=== PATIENT | female | born 1975 | race Caucasian/White ===

== ENCOUNTER 2017-07-02 16:38 | Emergency (ER) | payer MEDICARE ==
[2017-07-02] MEDS ORDERED: PROVENTIL 2.5 MG/3 ML NEB IH ONE ×4 (17:08→17:54)
[2017-07-02] MEDS ORDERED: DELTASONE 20 MG PO ONE (17:09)
[2017-07-02] MEDS ORDERED: Vibramycin 100 MG PO ONE (17:09)
[2017-07-02 17:12] VITALS: BP 131/93
--- NOTE | 2017-07-02 17:18 | ERPHSYRPT ---
- History of Present Illness Time Seen by Provider: 07/02/17 17:03 Source: patient Patient Subjective Stated Complaint: pt here for cough,congestion, no fever Triage Nursing Assessment: pt alert, cough productive green. wheezes Physician History: CC: cough HX: 42 y/o non smoker with cough for 2 weeks, congestion, worse. Alb MDI is . She has green sputum. Lots of cough. Low grade fevers. Timing/Duration: week(s) (2) Allergies/Adverse Reactions: codeine Allergy (Verified 07/02/17 17:13) Tightness of Throat Hx Tetanus, Diphtheria Vaccination/Date Given: No Hx Influenza Vaccination/Date Given: No Hx Pneumococcal Vaccination/Date Given: No Immunizations Up to Date: Yes - Review of Systems Constitutional: Malaise Eyes: No Symptoms Respiratory: Cough, Wheezing Abdominal/Gastrointestinal: No Nausea, No Vomiting, No Diarrhea Skin: No Rash Neurological: No Headache All Other Systems: Reviewed and Negative - Past Medical History Pertinent Past Medical History: Yes Neurological History: Migraines ENT History: No Pertinent History Cardiac History: No Pertinent History Respiratory History: Bronchitis Endocrine Medical History: No Pertinent History Musculoskeletal History: Arthritis, Other GI Medical History: No Pertinent History, GERD, Gallbladder Disease, Polyps History: No Pertinent History Psycho-Social History: Bipolar Female Reproductive Disorders: No Pertinent History Other Medical History: rt shoulder and neck pain,PTSD,. Chronic pain - Past Surgical History Past Surgical History: Yes Neuro Surgical History: No Pertinent History Cardiac: No Pertinent History Respiratory: No Pertinent History Gastrointestinal: Cholecystectomy Genitourinary: No Pertinent History Female Surgical History: Tubal Ligation Other Surgical History: THERMAL ABLATION. cyst on right ovary removed. Cervical RONDA - Social History Smoking Status: Current every day smoker How long have you smoked: 22 years Exposure to second hand smoke: Yes Drug Use: none Patient Lives Alone: No - Female History Hx Last Menstrual Period: ablasion Hx Now: No - Nursing Vital Signs Nursing Vital Signs: Initial Vital Signs Temperature 98.3 F 07/02/17 17:06 Pulse Rate 86 07/02/17 17:06 Respiratory Rate 18 07/02/17 17:06 Blood Pressure 131/93 07/02/17 17:06 O2 Sat by Pulse Oximetry 96 07/02/17 17:06 Pain Scale Pain Intensity 8 - Physical Exam General Appearance: alert Eye Exam: PERRL/EOMI Ears, Nose, Throat Exam: normal ENT inspection, moist mucous membranes, pharyngeal erythema Neck Exam: normal inspection, non-tender, supple Respiratory Exam: rhonchi, wheezing, other (lots of cough) Cardiovascular Exam: regular rate/rhythm Gastrointestinal/Abdomen Exam: soft, No tenderness, No distention Back Exam: normal inspection Extremity Exam: normal inspection, normal range of motion Neurologic Exam: alert, oriented x 3, cooperative, panel sewer II-XII nml as tested, sensation nml, No motor deficits SpO2 Interpretation: normal SpO2: 96 Oxygen Delivery: Room Air - Course Nursing assessment & vital signs reviewed: Yes - Radiology Exams cxr X-ray Interpretation: Interpreted by me, No Pneumonia Ordered Tests: Active Orders 24 hr Category Date Time Status CHEST 2 VIEWS (PA AND LAT) Stat Exams 07/02/17 17:09 Taken Peak Expiratory Flow Rate ONCE RT 07/02/17 17:35 Completed Respiratory Nebulizer STAT RT 07/02/17 17:09 Completed Medication Summary Discontinued Medications Generic Name Dose Route Start Last Admin Trade Name Freq PRN Reason Stop Dose Admin Albuterol Sulfate 2.5 mg 07/02/17 17:08 07/02/17 17:15 Proventil 2.5 Mg/3 Ml Neb IH 07/02/17 17:09 2.5 mg STAT ONE Administration Albuterol Sulfate Confirm 07/02/17 17:14 Proventil 2.5 Mg/3 Ml Neb Administered 07/02/17 17:15 Dose 2.5 mg IH .STK-MED ONE Doxycycline Hyclate 100 mg 07/02/17 17:09 07/02/17 17:22 Vibramycin 100 Mg PO 07/02/17 17:10 100 mg STAT ONE Administration Doxycycline Hyclate Confirm 07/02/17 17:21 Vibramycin 100 Mg Administered 07/02/17 17:22 Dose 100 mg .ROUTE .STK-MED ONE Prednisone 60 mg 07/02/17 17:09 07/02/17 17:22 Deltasone 20 Mg PO 07/02/17 17:10 60 mg STAT ONE Administration Prednisone Confirm 07/02/17 17:21 Deltasone 20 Mg Administered 07/02/17 17:22 Dose 60 mg .ROUTE .STK-MED ONE - Progress Progress Note: 07/02/17 17:16 Advised smoking cessation. 07/02/17 17:50 No pneumonia on cxr. Will release with instr. Counseled pt/family regarding: diagnosis, need for follow-up, rad results, smoking cessation - Departure Time of Disposition: 17:51 Departure Disposition: Home Clinical Impression: Acute asthmatic bronchitis, Smoker Condition: Fair Critical Care Time: No Referrals: CASSIDY CHAUDHRY [Primary Care Provider] - Instructions: Asthma, Adult (DC), Cough, Adult (DC), Quitting Smoking Additional Instructions: UPPER RESPIRATORY INFECTIONS 1. The signs and symptoms of a cold may last up to 10 days. These illnesses are due to viruses which are not treatable with antibiotics. 2. The following suggestions can aid in recovery and to minimize symptoms: A. Increase fluid intake. B. Acetaminophen or Ibuprofen as directed. C. Avoid smoking environments as this will increase the risk of developing pneumonia. D. For children, may use a cool mist vaporizer in the child's room. 3. Contact your Family Physician if you note: A. Persisten fever >103 for more than 3 days B. Breathing difficulty C. Productive cough of yellow/green sputum D. Illness greater than 7 days E. Persistent vomiting F. Stiff neck Rx albuterol MDI. Rx prednisone. Rx doxycycline. Prescriptions: Albuterol Sulfate [Albuterol Sulfate Hfa] 2 puff IH Q4-6HPRN PRN #1 [id number] PRN Reason: cough or wheeze Doxycycline Hyclate 100 mg [Vibramycin 100 MG] 1 tab PO BID #20 tab Prednisone 20 mg [Deltasone 20 mg] 2 tab PO DAILY #10 tablet
[2017-07-02] MEDS ORDERED: Vibramycin 100 MG ONE (17:21)
[2017-07-02] MEDS ORDERED: DELTASONE 20 MG ONE (17:21)
[2017-07-02 17:51] VITALS: O2SAT 96
[2017-07-02 18:08] VITALS: PULSE 88
--- NOTE | 2017-07-02 20:56 | XRAY ---
Indication: Productive cough. Comparison: None PA/lateral chest demonstrates normal heart and lungs. Bony thorax intact.
== END 2017-07-02 18:08 | disposition home or self-care (01) ==
LOC: ED 16:38
DX: J45.909 Unspecified asthma, uncomplicated (principal); F17.200 Nicotine dependence, unspecified, uncomplicated
CPT/HCPCS: 71046; 94150; 94640; 99282; 99284; A9270-GY

== ENCOUNTER 2019-04-18 06:16 | Emergency (ER) | payer MEDICARE ==
[2019-04-18 06:40] VITALS: BP 123/81; PULSE 79; O2SAT 98
--- NOTE | 2019-04-18 06:49 | ERPHSYRPT ---
- History of Present Illness Time Seen by Provider: 04/18/19 06:35 Source: patient Exam Limitations: no limitations Patient Subjective Stated Complaint: pt states she has red rash that itches all over her arms, legs, back, abd Triage Nursing Assessment: pt alert and oriented, answers questions approp. pt ambulatory with steady gait noted. respirations nonlabored with lungs cta. red raised rash to arms, legs, and trunk. Physician History: 43 y/o white female presents one year intermittent generalized rash. flare up 2 weeks ago. itches. had used topical steroids in past. pt has an appt with a digital assistant on 05/02/19. no known exposures. Timing/Duration: intermittent (over a year), worse Quality: itchy Severity: moderate Location: generalized Possible Causes: no cause identified Associated Symptoms: hives, No difficulty breathing Allergies/Adverse Reactions: codeine Allergy (Verified 04/18/19 06:40) Tightness of Throat Home Medications: PANTOPRAZOLE 40 mg Tablet [Protonix 40MG Tablet] 40 mg PO QAM 04/18/19 [ History] Hx Tetanus, Diphtheria Vaccination/Date Given: Yes Hx Influenza Vaccination/Date Given: Yes Hx Pneumococcal Vaccination/Date Given: No Immunizations Up to Date: Yes - Review of Systems Constitutional: No Symptoms Eyes: No Symptoms Ears, Nose, & Throat: No Symptoms Respiratory: No Symptoms Cardiac: No Symptoms Abdominal/Gastrointestinal: No Symptoms Genitourinary Symptoms: No Symptoms Musculoskeletal: No Symptoms Skin: Rash Neurological: No Symptoms Psychological: No Symptoms Endocrine: No Symptoms Hematologic/Lymphatic: No Symptoms Immunological/Allergic: No Symptoms All Other Systems: Reviewed and Negative - Past Medical History Pertinent Past Medical History: Yes Neurological History: Migraines ENT History: No Pertinent History Cardiac History: No Pertinent History Respiratory History: Bronchitis Endocrine Medical History: No Pertinent History Musculoskeletal History: Arthritis, Other GI Medical History: No Pertinent History, GERD, Gallbladder Disease, Polyps History: No Pertinent History Psycho-Social History: Bipolar Female Reproductive Disorders: No Pertinent History Other Medical History: rt shoulder and neck pain,PTSD,. Chronic pain - Past Surgical History Past Surgical History: Yes Neuro Surgical History: No Pertinent History Cardiac: No Pertinent History Respiratory: No Pertinent History Gastrointestinal: Cholecystectomy Genitourinary: No Pertinent History Female Surgical History: Tubal Ligation Other Surgical History: THERMAL ABLATION. cyst on right ovary removed. Cervical RONDA - Social History Smoking Status: Current every day smoker How long have you smoked: 23 years Exposure to second hand smoke: Yes Drug Use: none Patient Lives Alone: No - Female History Hx Last Menstrual Period: thermal ablation Hx Now: No - Nursing Vital Signs Nursing Vital Signs: Initial Vital Signs Temperature 98.2 F 04/18/19 06:28 Pulse Rate 79 04/18/19 06:28 Respiratory Rate 18 04/18/19 06:28 Blood Pressure 123/81 04/18/19 06:28 O2 Sat by Pulse Oximetry 98 04/18/19 06:28 Pain Scale Pain Intensity 0 - Physical Exam General Appearance: no apparent distress, alert, anxiety Eye Exam: PERRL/EOMI, eyes nml inspection Ears, Nose, Throat Exam: normal ENT inspection Neck Exam: normal inspection, non-tender, supple, full range of motion Respiratory Exam: normal breath sounds, lungs clear, airway intact, No chest tenderness, No respiratory distress Gastrointestinal/Abdomen Exam: No tenderness Pelvic Exam: not done Rectal Exam: not done Back Exam: normal inspection, normal range of motion, CVA tenderness Extremity Exam: normal inspection, normal range of motion, pelvis stable Neurologic Exam: alert, oriented x 3, cooperative, cook boat II-XII nml as tested Skin Exam: rash (generalized multiple sl red raised skin lesions. no blisters all approx same sx) Lymphatic Exam: No adenopathy SpO2 Interpretation: normal SpO2: 98 O2 Delivery: Room Air - Progress Progress: unchanged Counseled pt/family regarding: diagnosis, need for follow-up - Departure Departure Disposition: Home Clinical Impression: Rash and nonspecific skin eruption Condition: Stable Critical Care Time: No Referrals: CASSIDY CHAUDHRY [Primary Care Provider] - Additional Instructions: keep skin moist with unscented lotion two times daily. keep your dermatology appointment. Prescriptions: Famotidine [Pepcid] 20 mg PO DAILY #10 tablet Hydroxyzine Pamoate [Vistaril] 25 mg PO Q6H #20 capsule Methylprednisolone Packet [Medrol Dosepack] 4 mg PO UD #1 packet
[2019-04-18] MEDS ORDERED: ATARAX 25 MG PO ONE (06:55)
[2019-04-18] MEDS ORDERED: Pepcid 20 MG PO ONE (06:55)
[2019-04-18] MEDS ORDERED: solu-MEDROL 125 MG IM ONE (06:55)
[2019-04-18] MEDS ORDERED: Pepcid 20 MG ONE (07:00)
[2019-04-18] MEDS ORDERED: solu-MEDROL 125 MG ONE (07:01)
[2019-04-18] MEDS ORDERED: ATARAX 25 MG ONE (07:01)
== END 2019-04-18 07:24 | disposition home or self-care (01) ==
LOC: ED 06:16
DX: R21 Rash and other nonspecific skin eruption (principal)
CPT/HCPCS: 96372; 99283; J2930; A9270-GY

== ENCOUNTER 2019-05-13 14:37 | Emergency (ER) | payer MEDICARE ==
[2019-05-13 14:58] VITALS: O2SAT 97
--- NOTE | 2019-05-13 15:23 | ERPHSYRPT ---
- History of Present Illness Time Seen by Provider: 05/13/19 15:20 Source: patient Exam Limitations: no limitations Patient Subjective Stated Complaint: Pt fell [place] down the last step on a porch and her ankle ended up under her but she isn't sure if she twisted it or what, left ankle bruised and swollen on lateral and medial sides Triage Nursing Assessment: Pt brought into the ER via a wheelchair, vitals wnl, capillary refill normal, pulses normal, denies pain while not putting weight on it Physician History: Pt fell [place] down the last step on a porch and her ankle ended up under her but she isn't sure if she twisted it or what, left ankle bruised and swollen on lateral and medial sides Method of Injury: fell Occurred: last week Quality: intermittent Severity of Pain-Max: mild Severity of Pain-Current: mild Lower Extremities Pain: ankle: left Modifying Factors: Improves With: cold therapy Associated Symptoms: none Allergies/Adverse Reactions: codeine Allergy (Verified 05/13/19 14:58) Tightness of Throat Home Medications: PANTOPRAZOLE 40 mg Tablet [Protonix 40MG Tablet] 40 mg PO QAM 04/18/19 [ History] Cetirizine HCl [Allergy Relief] 10 mg PO DAILY 05/13/19 [History] Crisaborole [Eucrisa] 60 gm TP UD 05/13/19 [History] Famotidine [Pepcid] 40 mg PO DAILY 05/13/19 [History] Hx Tetanus, Diphtheria Vaccination/Date Given: Yes Hx Influenza Vaccination/Date Given: Yes Hx Pneumococcal Vaccination/Date Given: No - Review of Systems Constitutional: No Symptoms Eyes: No Symptoms Ears, Nose, & Throat: No Symptoms Respiratory: No Symptoms Cardiac: No Symptoms Abdominal/Gastrointestinal: No Symptoms Musculoskeletal: Joint Pain, Joint Swelling (left ankle) - Past Medical History Pertinent Past Medical History: Yes Neurological History: Migraines ENT History: No Pertinent History Cardiac History: No Pertinent History Respiratory History: Bronchitis Endocrine Medical History: No Pertinent History Musculoskeletal History: Arthritis, Other GI Medical History: No Pertinent History, GERD, Gallbladder Disease, Polyps History: No Pertinent History Psycho-Social History: Bipolar Female Reproductive Disorders: No Pertinent History Other Medical History: rt shoulder and neck pain,PTSD,. Chronic pain, excema - Past Surgical History Past Surgical History: Yes Neuro Surgical History: No Pertinent History Cardiac: No Pertinent History Respiratory: No Pertinent History Gastrointestinal: Cholecystectomy Genitourinary: No Pertinent History Female Surgical History: Tubal Ligation Other Surgical History: THERMAL ABLATION. cyst on right ovary removed. Cervical RONDA - Social History Smoking Status: Current every day smoker How long have you smoked: 23 years Exposure to second hand smoke: Yes Drug Use: none Patient Lives Alone: No - Female History Hx Now: No (tubal, thermal ablasion) - Nursing Vital Signs Nursing Vital Signs: Initial Vital Signs Temperature 97.9 F 05/13/19 14:47 Pulse Rate 73 05/13/19 14:47 Blood Pressure 107/73 05/13/19 14:47 O2 Sat by Pulse Oximetry 97 05/13/19 14:47 Pain Scale Pain Intensity 0 - Physical Exam General Appearance: no apparent distress Eyes, Ears, Nose, Throat Exam: normal ENT inspection Neck Exam: normal inspection Ankle Exam: left ankle: pain, soft tissue tenderness SpO2: 97 - Course Nursing assessment & vital signs reviewed: Yes - Radiology Exams Left Ankle X-ray Interpretation: Reviewed by me, Negative, No Fracture, No Subluxation Ordered Tests: Active Orders 24 hr Category Date Time Status ANKLE (3 VIEWS) Stat Exams 05/13/19 14:59 Taken - Progress Progress: unchanged, pain not gone completely Counseled pt/family regarding: diagnosis, need for follow-up, rad results - Departure Departure Disposition: Home Clinical Impression: High ankle sprain of left lower extremity Qualifiers: Encounter type: initial encounter Qualified Code(s): S93.432A - Sprain of tibiofibular ligament of left ankle, initial encounter Condition: Stable Critical Care Time: No Referrals: CASSIDY CHAUDHRY [Primary Care Provider] - Instructions: Ankle Sprain (DC) Additional Instructions: take 500 mg tylenol with 400 mg ibuprofen three times a day for 3 days. CLOTILDE HODGE was seen on 05/13/19 n the Emergency Room. At that time you were treated for an emergent condition, during your visit Laboratory, Radiology and/or other procedures may have been ordered. It is very important that you follow-up with your Primary Care Physician CASSIDY CHAUDHRY within the next 24-48 hours to review your Emergency Room visit and the final results of testing that was ordered. Some test results such as Urine Cultures, Blood Cultures, and other cultures if ordered will not be finalized for 24-48 hours. If you do not have a Primary Care Provider please call the medical records department at [phone] to obtain a copy of your results or you may sign into our patient portal to obtain these results by visiting us @ [email or web address] and completing the following steps: 1. Click on the Patient Portal link 2. Click the Patient Self Enrollment Link to complete the enrollment form and entering your 3. Once the enrollment form is completed you will receive an email with a temporary ID and password at the email address you provided. 4. Next choose a user name and password. Your user name must be at least 4 characters long and your password must be at least 4 characters long. 5. Choose a security question from the list and provide your answer to the question. If you already have signed into the Health Portal you may access your Health Care Information 06/12 by the following steps: 1. Login to our website @ [email or web address] 2. Enter your original user name and password. FAQS The [facility] Health Portal is an online tool that contains your Lab Results, Radiology Reports, Visit History, Discharge Instructions and Health Summary Lab and Radiology Results will not be available for 72 hours on the portal. The Portal is a secure site, passwords are encryted and URLs are re-written so they cannot be copied and pasted. You and authorized family members are the only ones who can access your Portal. Also there is a timeout feature that protects your information if you leave the Portal page open. If you have technical difficulty please use the Contact Us link on the page this will allow you to submit any questions you have regarding the Portal or you may contact the Medical Record Department at [phone]. Discharge/Care Plan CLOTILDE HODGE was seen on 05/13/19 in the Emergency Room. The patient was counseled regarding Diagnosis,Lab results, Imaging studies, need for follow up and when to return to the Emergency Room. Prescriptions given: Discharge Note I have spoken with the patient and/or caregivers. I have explained the patient' s condition, diagnosis and treatment plan based on the information available to me at this time. I have answered the patient's and/or caregiver's questions and addressed any concerns. The patient and/or caregivers have as good understanding of the patient's diagnosis, condition and treatment plan as can be expected at this point. The vital signs have been stable. The patient's condition is stable and appropriate for discharge from the emergency department. The patient will pursue further outpatient evaluation with the primary care physician or other designated or consulting physician as outlined in the discharge instructions. The patient and/or caregivers are agreeable to this plan of care and follow-up instructions have been explained in detail. The patient and/or caregivers have received these instruction. The patient/and or caregivers are aware that any significant change in condition or worsening of symptoms should prompt an immediate return to this or the closest emergency department or call 911.
[2019-05-13 15:25] VITALS: BP 108/76; PULSE 68
--- NOTE | 2019-05-13 20:22 | XRAY ---
Indication: Pain following twisting injury. Comparison: None 3 views of the left ankle demonstrates small plantar heel spur and tiny distal tibia bone island. No other bony, articular, or soft tissue abnormalities.
== END 2019-05-13 15:30 | disposition home or self-care (01) ==
LOC: ED 14:37
DX: S93.432A Sprain of tibiofibular ligament of left ankle, initial encounter (principal)
CPT/HCPCS: 73610; 99283

== ENCOUNTER 2019-12-12 16:44 | Emergency (ER) | payer MEDICARE ==
[2019-12-12 16:55] VITALS: PULSE 72
[2019-12-12] MEDS ORDERED: Rocephin 1000 MG INJ IM ONE (17:02)
[2019-12-12] MEDS ORDERED: HYDROCODONE-ACETAMIN 2.5-108/5 ML SOLUTION PO STA (17:03)
[2019-12-12] MEDS ORDERED: solu-MEDROL 125 MG IM ONE (17:03)
[2019-12-12] MEDS ORDERED: Rocephin 1000 MG INJ ONE (17:09)
[2019-12-12] MEDS ORDERED: HYDROCODONE-ACETAMIN 2.5-108/5 ML SOLUTION ONE (17:09)
[2019-12-12] MEDS ORDERED: XYLOCAINE 1% HCL 20 ML MDV ONE (17:09)
[2019-12-12] MEDS ORDERED: solu-MEDROL 125 MG ONE (17:09)
--- NOTE | 2019-12-12 17:10 | ERPHSYRPT ---
- History of Present Illness Time Seen by Provider: 12/12/19 16:55 Source: patient, family Exam Limitations: no limitations Patient Subjective Stated Complaint: Pt has a large white puscule in the back right of her throat causing pain to her throat, mouth and teeth Triage Nursing Assessment: Pt brought to the ER by her , john freeman, rates mouth/throat pain as 8/10, large white puscule in the back right of her throat, afebrile, denies any other issues at this time Physician History: This is a 44-year-old white female who presents with 1 day history of sore throat right side versus the left. There is a pustule present in the oropharynx. Patient has not taken her temperature but has felt feverish. She is afebrile this evening. She has no cough. She has no chest pain she has no shortness of breath. She has no abdominal pain. She has no myalgias or arthralgias. She has not been exposed to anybody with the COVID-19 virus or anyone with a positive strep throat diagnosis. Timing/Duration: yesterday Cough Quality/Degree: no cough Possible Cause: no prior episodes Modifying Factors: Improves With: other (Hurts to swallow to have minimal pain) Associated Symptoms: sore throat (Right side worse than left) Allergies/Adverse Reactions: codeine Allergy (Verified 12/12/19 16:55) Tightness of Throat Home Medications: PANTOPRAZOLE 40 mg Tablet [Protonix 40MG Tablet] 40 mg PO QAM 04/18/19 [History] Cetirizine HCl [Allergy Relief] 10 mg PO DAILY 05/13/19 [History] Crisaborole [Eucrisa] 60 gm TP UD 05/13/19 [History] Famotidine [Pepcid] 40 mg PO DAILY 05/13/19 [History] Hx Tetanus, Diphtheria Vaccination/Date Given: Yes Hx Influenza Vaccination/Date Given: Yes Hx Pneumococcal Vaccination/Date Given: No Travel Risk - International Travel Have you traveled outside of the country in past 3 weeks: No - Coronavirus Screening Are you exhibiting any of the following symptoms?: No Close contact with a COVID-19 positive Pt in past 14-21 Days: No - Review of Systems Constitutional: No Symptoms Eyes: No Symptoms Ears, Nose, & Throat: Throat Pain (With swallowing), No Stridor Respiratory: No Symptoms Cardiac: No Symptoms Abdominal/Gastrointestinal: No Symptoms Genitourinary Symptoms: No Symptoms Musculoskeletal: No Symptoms Skin: No Symptoms Neurological: No Symptoms Psychological: No Symptoms Endocrine: No Symptoms Hematologic/Lymphatic: No Symptoms Immunological/Allergic: No Symptoms All Other Systems: Reviewed and Negative - Past Medical History Pertinent Past Medical History: Yes Neurological History: Migraines ENT History: No Pertinent History Cardiac History: No Pertinent History Respiratory History: Bronchitis Endocrine Medical History: No Pertinent History Musculoskeletal History: Arthritis, Other GI Medical History: No Pertinent History, GERD, Gallbladder Disease, Polyps History: No Pertinent History Psycho-Social History: Bipolar Female Reproductive Disorders: No Pertinent History Other Medical History: rt shoulder and neck pain,PTSD,. Chronic pain, excema - Past Surgical History Past Surgical History: Yes Neuro Surgical History: No Pertinent History Cardiac: No Pertinent History Respiratory: No Pertinent History Gastrointestinal: Cholecystectomy Genitourinary: No Pertinent History Female Surgical History: Tubal Ligation Other Surgical History: THERMAL ABLATION. cyst on right ovary removed. Cervical RONDA - Social History Smoking Status: Current every day smoker How long have you smoked: 23 years Exposure to second hand smoke: Yes Drug Use: none Patient Lives Alone: No - Female History Hx Now: No (tubal) - Nursing Vital Signs Nursing Vital Signs: Initial Vital Signs Temperature 98.0 F 12/12/19 16:47 Pulse Rate 72 12/12/19 16:47 Blood Pressure 124/86 12/12/19 16:47 O2 Sat by Pulse Oximetry 98 12/12/19 16:47 Pain Scale Pain Intensity 8 - Physical Exam General Appearance: no apparent distress, alert, anxiety Eye Exam: PERRL/EOMI, eyes nml inspection Ears, Nose, Throat Exam: pharyngeal erythema, other (Exudate present right side of oropharynx) Neck Exam: normal inspection, non-tender, supple, full range of motion Respiratory Exam: normal breath sounds, lungs clear, airway intact, No chest tenderness, No respiratory distress Cardiovascular Exam: regular rate/rhythm, normal heart sounds, normal peripheral pulses Gastrointestinal/Abdomen Exam: soft, normal bowel sounds, No tenderness Pelvic Exam: not done Rectal Exam: not done Back Exam: normal inspection, normal range of motion, No CVA tenderness, No vertebral tenderness Extremity Exam: normal inspection, normal range of motion, pelvis stable Neurologic Exam: alert, oriented x 3, cooperative, 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 tested, normal mood/affect, nml cerebellar function, nml station & gait, No sensation nml Skin Exam: normal color, warm, dry Lymphatic Exam: No adenopathy SpO2 Interpretation: normal SpO2: 98 O2 Delivery: Room Air - Course Nursing assessment & vital signs reviewed: Yes Ordered Tests: Medication Summary Generic Name Dose Route Start Last Admin Trade Name Patrice PRN Reason Stop Dose Admin Hydrocodone Bitart/Acetaminophen 15 ml 12/12/19 17:03 Hydrocodone-Acetamin 2.5-108/5 Ml Solution PO 12/12/19 17:04 STAT STA Ceftriaxone Sodium 1,000 mg 12/12/19 17:02 Rocephin 1000 Mg Inj IM 12/12/19 17:03 STAT ONE Methylprednisolone Sodium Succinate 125 mg 12/12/19 17:03 Solu-Medrol 125 Mg IM 12/12/19 17:04 STAT ONE - Progress Progress: improved Air Movement: good Progress Note: 12/12/19 17:12 Patient told me that she cannot take codeine but has taken hydrocodone without any difficulty or problems in the past. Blood Culture(s) Obtained: No Antibiotics given: No Counseled pt/family regarding: diagnosis, need for follow-up - Departure Departure Disposition: Home Clinical Impression: Pharyngitis Condition: Stable Critical Care Time: No Referrals: CASSIDY CHAUDHRY [Primary Care Provider] - Additional Instructions: Drink plenty of fluids. Take medication as prescribed. Follow-up with your primary care physician for persistent symptoms. Return to emergency department if your symptoms worsen. Prescriptions: Prednisone 10 mg [Deltasone 10 mg] 10 mg PO TID #12 tablet Hydrocodone Bit/Acetaminophen [Hydrocodone-Acetaminophen Soln] 10 ml PO Q6H #120 ml Azithromycin 250 mg [Zithromax 250 MG TABLET] 250 mg PO ZPACK #6 tablet
[2019-12-12 17:19] VITALS: BP 115/94; O2SAT 95
== END 2019-12-12 17:29 | disposition home or self-care (01) ==
LOC: ED 16:44
DX: J02.9 Acute pharyngitis, unspecified (principal)
CPT/HCPCS: 96372; 99284; J0696; J2930; A9270-GY

== ENCOUNTER 2020-01-01 14:46 | Emergency (ER) | payer MEDICARE ==
--- NOTE | 2020-01-01 15:36 | ERPHSYRPT ---
- History of Present Illness Time Seen by Provider: 01/01/20 14:55 Source: patient Exam Limitations: no limitations Patient Subjective Stated Complaint: Pt states "I was here on the of last month for the same thing and now it is back. My right ear has pressure and I have a white spot on the right side of my throat." Triage Nursing Assessment: Pt presented alert and orietned X 3, skin pwd Pt ambualtes with an upright steady gait, able to speak in clear full sentnecs pt in no apparent respiratory distress. pt has white spot on her throat. Physician History: Patient is a 44-year-old female presents to our ED with complaints of right ear pressure and sore throat. Patient was in our ED on 11 December for the same. She was diagnosed with strep throat. Patient was treated with antibiotics and steroids. Symptoms resolved however sore throat and ear pressure have recurred. Symptoms started yesterday. Sore throat is primarily on the right side. Patient observed a white spot on her tonsil. No fever. No nausea vomiting. No headache. No neck pain. No meningeal signs. No nausea or vomiting. No rash. No diarrhea. Symptoms are mild to moderate in intensity. Patient voices no other complaints at this time. Severity: moderate ENT Location: ear (R), throat Prearrival Treatment: no prearrival treatment Modifying Factors: Improves With: nothing Associated Symptoms: ear pain (R), No fever, No change in hearing, No headache, No hearing loss, No jaw pain, No malaise, No nasal congestion/drainage, No nasal foreign body, No neck pain, No poor fluid intake Allergies/Adverse Reactions: codeine Allergy (Verified 12/12/19 16:55) Tightness of Throat Home Medications: PANTOPRAZOLE 40 mg Tablet [Protonix 40MG Tablet] 40 mg PO QAM 04/18/19 [History] Cetirizine HCl [Allergy Relief] 10 mg PO DAILY 05/13/19 [History] Crisaborole [Eucrisa] 60 gm TP UD 05/13/19 [History] Famotidine [Pepcid] 40 mg PO DAILY 05/13/19 [History] Hx Tetanus, Diphtheria Vaccination/Date Given: No Hx Influenza Vaccination/Date Given: Yes Hx Pneumococcal Vaccination/Date Given: No Immunizations Up to Date: Yes Travel Risk - International Travel Have you traveled outside of the country in past 3 weeks: No - Coronavirus Screening Are you exhibiting any of the following symptoms?: No Close contact with a COVID-19 positive Pt in past 14-21 Days: No - Review of Systems Constitutional: No Symptoms, No Fever, No Chills Eyes: No Symptoms Ears, Nose, & Throat: No Symptoms Respiratory: No Symptoms, No Cough, No Dyspnea Cardiac: No Symptoms, No Chest Pain, No Edema, No Syncope Abdominal/Gastrointestinal: No Symptoms, No Abdominal Pain, No Nausea, No Vomiting, No Diarrhea Genitourinary Symptoms: No Symptoms, No Dysuria Musculoskeletal: No Symptoms, No Back Pain, No Neck Pain Skin: No Symptoms, No Rash Neurological: No Symptoms, No Dizziness, No Focal Weakness, No Sensory Changes Psychological: No Symptoms Endocrine: No Symptoms Hematologic/Lymphatic: No Symptoms Immunological/Allergic: No Symptoms All Other Systems: Reviewed and Negative - Past Medical History Pertinent Past Medical History: Yes Neurological History: Migraines ENT History: No Pertinent History Cardiac History: No Pertinent History Respiratory History: Bronchitis Endocrine Medical History: No Pertinent History Musculoskeletal History: Arthritis, Other GI Medical History: No Pertinent History, GERD, Gallbladder Disease, Polyps History: No Pertinent History Psycho-Social History: Bipolar Female Reproductive Disorders: No Pertinent History Other Medical History: rt shoulder and neck pain,PTSD,. Chronic pain, excema - Past Surgical History Past Surgical History: Yes Neuro Surgical History: No Pertinent History Cardiac: No Pertinent History Respiratory: No Pertinent History Gastrointestinal: Cholecystectomy Genitourinary: No Pertinent History Female Surgical History: Tubal Ligation Other Surgical History: THERMAL ABLATION. cyst on right ovary removed. Cervical RONDA - Social History Smoking Status: Current every day smoker How long have you smoked: years Exposure to second hand smoke: Yes Drug Use: none Patient Lives Alone: No - Female History Hx Last Menstrual Period: ablasion Hx Now: No - Nursing Vital Signs Nursing Vital Signs: Initial Vital Signs Temperature 98.6 F 01/01/20 14:51 Pulse Rate 79 01/01/20 14:51 Respiratory Rate 22 01/01/20 14:51 Blood Pressure 134/93 01/01/20 14:51 O2 Sat by Pulse Oximetry 99 01/01/20 14:51 Pain Scale Pain Intensity 6 - Physical Exam General Appearance: no apparent distress, alert Eye Exam: bilateral eye: normal inspection, PERRL, EOMI Ear Exam: bilateral ear: auricle normal, canal normal, TM normal Nasal Exam: normal inspection Throat Exam: pharynx normal, moist mucus membranes, No tonsillar exudate Neck Exam: supple Cardiovascular/Respiratory Exam: normal breath sounds, regular rate/rhythm Abdominal Exam: non-tender, soft Neurologic Exam: alert, oriented x 3, sensation nml, No motor deficits Skin Exam: normal color, warm, dry SpO2 Interpretation: normal SpO2: 99 O2 Delivery: Room Air - Course Nursing assessment & vital signs reviewed: Yes Ordered Tests: Active Orders 24 hr Category Date Time Status Kimble Screen Stat Lab 01/01/20 15:30 Completed Medication Summary Discontinued Medications Generic Name Dose Route Start Last Admin Trade Name Freq PRN Reason Stop Dose Admin Dexamethasone Sodium Phosphate 6 mg 01/01/20 16:58 Decadron 10mg Inj. PO 01/01/20 16:59 STAT ONE Lab/Rad Data: Laboratory Results 01/01/20 01/01/20 Range/Units 16:30 15:30 Monoscreen NEGATIVE (Negative) Group A Strep Antibody NOT DETECTED (NEGATIVE) - Progress Progress: improved Progress Note: 01/01/20 16:59 Rapid strep negative. Node negative. Patient received a dose of steroids/Decadron for symptomatic tonsillitis. No indication for antibiotics at this time. Patient is requesting/inquiring about a tonsillectomy. We will refer patient to ENT for consultation. Plan of care discussed with patient. She voices no other complaints concerns at this time. Will discharge patient home. Patient states he is ready for discharge. She voices no other complaints concerns at this time. Patient agrees to follow-up with her referral within 48 hours for reevaluation. Counseled pt/family regarding: lab results, diagnosis, need for follow-up - Departure Departure Disposition: Home Clinical Impression: Tonsillitis Condition: Stable Critical Care Time: No Referrals: CASSIDY CHAUDHRY [Primary Care Provider] - RED NUNEZ MD [CONSULTING PHYSICIAN] - Instructions: Sore Throat, Adult (DC) Additional Instructions: Discharge/Care Plan CLOTILDE HODGE was seen on 01/01/20 in the Emergency Room. The patient was counseled regarding Diagnosis,Lab results, Imaging studies, need for follow up and when to return to the Emergency Room. Prescriptions given: Discharge Note I have spoken with the patient and/or caregivers. I have explained the patient's condition, diagnosis and treatment plan based on the information available to me at this time. I have answered the patient's and/or caregiver's questions and addressed any concerns. The patient and/or caregivers have as good understanding of the patient's diagnosis, condition and treatment plan as can be expected at this point. The vital signs have been stable. The patient's condition is stable and appropriate for discharge from the emergency department. The patient will pursue further outpatient evaluation with the primary care physician or other designated or consulting physician as outlined in the discharge instructions. The patient and/or caregivers are agreeable to this plan of care and follow-up instructions have been explained in detail. The patient and/or caregivers have received these instruction. The patient/and or caregivers are aware that any significant change in condition or worsening of symptoms should prompt an immediate return to this or the closest emergency department or call 911.
[2020-01-01] MEDS ORDERED: DECADRON 10MG INJ. PO ONE (16:58)
[2020-01-01] MEDS ORDERED: DECADRON 10MG INJ. ONE (17:01)
[2020-01-01 17:03] VITALS: O2SAT 99
[2020-01-01 17:06] VITALS: BP 128/61; PULSE 88
== END 2020-01-01 17:14 | disposition home or self-care (01) ==
LOC: ED 14:46
DX: J03.90 Acute tonsillitis, unspecified (principal)
CPT/HCPCS: 36415; 86308; 87651; 99283; J1100

== ENCOUNTER 2021-12-23 06:26 | Day surgery (SDC) | payer MEDICARE ==
[2021-12-23] MEDS ORDERED: Lactated Ringers 1,000 ML IV SCH (07:00)
[2021-12-23] MEDS ORDERED: DIPRIVAN 200 MG/20 ML IV ONE ×3 (08:51→09:31)
[2021-12-23] MEDS ORDERED: Xylocaine-Mpf 2% 5 Ml Vial ONE (08:57)
[2021-12-23 10:20] VITALS: BP 120/78; PULSE 63; O2SAT 98
--- NOTE | 2021-12-23 12:06 | OP ---
SURGERY DATE/TIME: 12/23/2021 0857 PREOPERATIVE DIAGNOSIS: History of colon polyps. POSTOPERATIVE DIAGNOSIS: Multiple colon polyps. PROCEDURE: Colonoscopy. SURGEON: Giuseppe Castillo M.D. ANESTHESIA: MAC by Jose Antonio Rene CRNA. ESTIMATED BLOOD LOSS: Minimal. SPECIMENS: 1) Hot snare polypectomy from the sigmoid colon. 2) Cold forceps polypectomy from the rectum x4. DESCRIPTION OF PROCEDURE: After informed written consent was obtained, the patient was taken to the endoscopy suite. She was placed in left lateral decubitus position. Anesthesia was titrated to desired level of consciousness. Digital rectal exam showed normal sphincter tone and no internal lesions. The scope was inserted into the rectum and sequentially the entire colonic mucosa was traversed. The level of cecum was reached and verified with direct visualization of the ileocecal valve. Upon withdrawal there were no mucosal abnormalities until I reached the distal sigmoid colon. There was a fairly large pedunculated polyp at that level which was snared and then cauterized and removed in its entirety with no blood loss and good results with complete removal of the lesion and no bleeding upon removal. Upon further withdrawal there were multiple small, flat polyps in the rectum grasped with cold forceps and removed in their entirety with minimal blood loss. Prior to withdrawal retroflexion showed no internal lesions. The scope was removed. The patient was transferred to the recovery room in good condition. She will follow up in a week for pathology results.
== END 2021-12-23 10:30 | disposition home or self-care (01) ==
LOC: SDC 06:26
PROVIDERS: ATTEND Family Medicine
DX: Z09 Encounter for follow-up examination after completed treatment for conditions other than malignant neoplasm (principal); Z86.010 Personal history of colon polyps; K63.5 Polyp of colon
CPT/HCPCS: J2704

== ENCOUNTER 2024-02-01 18:59 | Emergency (ER) | payer MEDICARE ==
[2024-02-01 19:24] VITALS: O2SAT 98
[2024-02-01] MEDS ORDERED: Zofran 4 MG/2 ML VIAL ONE (19:27)
[2024-02-01] MEDS ORDERED: Hydromorphone 1 mg/ml Injection ONE (19:28)
[2024-02-01] MEDS: Zofran 4 MG/2 ML VIAL IV ONE (19:29)
[2024-02-01] MEDS: Hydromorphone 1 mg/ml Injection IV ONE (19:29)
[2024-02-01 19:37] VITALS: TEMP 97.8
--- NOTE | 2024-02-01 19:45 | ERPHSYRPT ---
- History of Present Illness Time Seen by Provider: 02/01/24 19:25 Source: patient Exam Limitations: no limitations Patient Subjective Stated Complaint: pt states she fell while holding her dog onto her back and lt side and has been having severe pain in her lt side Triage Nursing Assessment: pt alert and oriented, answers questions approp. pt ambulates into room with slow steady gait noted. pt holding lt ribs, shallow breaths. lungs clear. skin warm and dry. Physician History: Patient is a 48-year-old female presents to our ED for evaluation of left-sided rib pain. Patient states she was holding her dog. They were clipped the dog nails. Dog became a little rambunctious causing our patient to fall onto her left side. Injury occurred today..patient complains of rib pain from the level of rib #5 down to rib #9. No BHT or LOC. No neck pain. Cervical spine cleared clinically. No nausea vomiting. No other injuries reported. Significant other at bedside. They voiced no other complaints or concerns. Portions of this note were created with voice recognition technology. There may be grammatical, spelling, punctuation or sound alike errors Timing/Duration: today Severity: moderate Modifying Factors: Improves With: movement Associated Symptoms: denies symptoms Allergies/Adverse Reactions: codeine Allergy (Verified 02/01/24 19:20) Tightness of Throat Home Medications: Famotidine [Pepcid] 40 mg PO DAILY 05/13/19 [History] Dupilumab [Dupixent Pen] 300 mg SQ UD 12/18/21 [History] Fluticasone Propionate [Flonase Allergy Relief] 15.8 ml NS DAILY 12/18/21 [History] Cetirizine HCl [Zyrtec] 10 mg PO DAILY 02/01/24 [History] Trazodone HCl 50 mg [Desyrel 50 mg] 50 mg PO HS 02/01/24 [History] Hx Tetanus, Diphtheria Vaccination/Date Given: Yes Hx Influenza Vaccination/Date Given: No Hx Pneumococcal Vaccination/Date Given: No Immunizations Up to Date: Yes Travel Risk - International Travel Have you traveled outside of the country in past 3 weeks: No - Emerging Infectious Disease Are you exhibiting symptoms associated with any current EIDs: No - Review of Systems Constitutional: No Symptoms, No Fever, No Chills Eyes: No Symptoms Ears, Nose, & Throat: No Symptoms Respiratory: No Symptoms, No Cough, No Dyspnea Cardiac: No Symptoms, No Chest Pain, No Edema, No Syncope Abdominal/Gastrointestinal: No Symptoms, No Abdominal Pain, No Nausea, No Vomiting, No Diarrhea Genitourinary Symptoms: No Symptoms, No Dysuria Musculoskeletal: No Symptoms, No Back Pain, No Neck Pain Skin: No Symptoms, No Rash Neurological: No Symptoms, No Dizziness, No Focal Weakness, No Sensory Changes Psychological: No Symptoms Endocrine: No Symptoms Hematologic/Lymphatic: No Symptoms Immunological/Allergic: No Symptoms All Other Systems: Reviewed and Negative - Past Medical History Pertinent Past Medical History: Yes Neurological History: Migraines ENT History: No Pertinent History Cardiac History: No Pertinent History Respiratory History: Bronchitis Endocrine Medical History: No Pertinent History Musculoskeletal History: Arthritis, Other GI Medical History: GERD, Gallbladder Disease, Polyps History: No Pertinent History Psycho-Social History: Bipolar Female Reproductive Disorders: No Pertinent History Other Medical History: rt shoulder and neck pain,PTSD,. Chronic pain, excema - Past Surgical History Past Surgical History: Yes Neuro Surgical History: No Pertinent History Cardiac: No Pertinent History Respiratory: No Pertinent History Gastrointestinal: Cholecystectomy Genitourinary: No Pertinent History Musculoskeletal: No Pertinent History Female Surgical History: Tubal Ligation Other Surgical History: THERMAL ABLATION. cyst on right ovary removed. Cervical RONDA - Female History Hx Last Menstrual Period: post - Social History Smoking Status: Smoker, status unknown How long have you smoked: 33 years Exposure to second hand smoke: Yes Drug Use: none Patient Lives Alone: No - Social Determinants of Health Will the patient participate in the screening: Yes Do you worry about a steady place to live?: No Do you have any problems with any of the following?: No known problems In the past 12 months,have you had to go without utilities?: No Transportation Issues: No Has anyone in your support network made you feel unsafe?: No Have you or anyone in your house had to go without enough: No - Nursing Vital Signs Nursing Vital Signs: Initial Vital Signs Pulse Rate 81 02/01/24 19:17 Respiratory Rate 18 02/01/24 19:17 Blood Pressure 123/74 02/01/24 19:17 O2 Sat by Pulse Oximetry 98 02/01/24 19:17 Pain Scale Pain Intensity 9 - Physical Exam General Appearance: no apparent distress, alert Eye Exam: PERRL/EOMI, eyes nml inspection Ears, Nose, Throat Exam: normal ENT inspection, moist mucous membranes Neck Exam: normal inspection, non-tender, supple, full range of motion Respiratory Exam: normal breath sounds, lungs clear, airway intact, No respiratory distress Cardiovascular Exam: regular rate/rhythm, normal heart sounds, normal peripheral pulses, other (Ribs 5 through 9 tenderness to palpation. Overlying soft tissue intact) Gastrointestinal/Abdomen Exam: soft, normal bowel sounds, No tenderness, No mass Back Exam: normal inspection, normal range of motion, No CVA tenderness, No vertebral tenderness Extremity Exam: normal inspection, normal range of motion, pelvis stable Neurologic Exam: alert, oriented x 3, cooperative, normal mood/affect, sensation nml, No motor deficits Skin Exam: normal color, warm, dry, No rash Lymphatic Exam: No adenopathy SpO2 Interpretation: normal SpO2: 98 O2 Delivery: Room Air - Course Nursing assessment & vital signs reviewed: Yes - CT Exams Chest CT Interpretation: Tele-radiologist Report (No acute findings) Ordered Tests: Active Orders 24 hr Category Date Time Status IV Insertion STAT Care 02/01/24 19:23 Active CHEST WITHOUT CONTRAST [CT] Stat Exams 02/01/24 19:23 Completed Incentive Spirometry UD RT 02/01/24 20:56 Active Medication Summary Discontinued Medications Generic Name Dose Route Start Last Admin Trade Name Barryq PRN Reason Stop Dose Admin Hydromorphone HCl 0.5 mg 02/01/24 19:25 02/01/24 19:29 Hydromorphone 1 Mg/1ml Inj IV 02/01/24 19:26 0.5 mg STAT ONE Administration Hydromorphone HCl Confirm 02/01/24 19:28 Hydromorphone 1 Mg/1ml Inj Administered 02/01/24 19:29 Dose 1 mg .ROUTE .STK-MED ONE Ketorolac Tromethamine 30 mg 02/01/24 21:05 02/01/24 21:10 Ketorolac Tromethamine 30 Mg/Ml Inj IV 02/01/24 21:06 30 mg STAT ONE Administration Ketorolac Tromethamine Confirm 02/01/24 21:11 Ketorolac Tromethamine 30 Mg/Ml Inj Administered 02/01/24 21:12 Dose 30 mg .ROUTE .STK-MED ONE Ondansetron HCl 4 mg 02/01/24 19:25 02/01/24 19:29 Ondansetron Hcl 4 Mg/2 Ml Vial IV 02/01/24 19:26 4 mg STAT ONE Administration Ondansetron HCl Confirm 02/01/24 19:27 Ondansetron Hcl 4 Mg/2 Ml Vial Administered 02/01/24 19:28 Dose 4 mg .ROUTE .STK-MED ONE - Progress Progress: improved Progress Note: 48-year-old female presents to our ED with pain to her left sided ribs. Patient fell while clipping her dog's nails. Physical exam reveals tenderness along the lateral ribs 5 through 9. Patient received half of Dilaudid. Pain improved. Did not resolve. Patient requesting additional pain medication. CT chest without contrast is negative for fractures dislocations. No evidence of lung contusions. Patient will receive IV Toradol just prior to discharge. A prescription for the same forwarded to patient's pharmacy. Patient agrees to follow-up with primary care doctor within 48 hours for reevaluation. Portions of this note were created with voice recognition technology. There may be grammatical, spelling, punctuation or sound alike errors Complexity of problem addressed is moderate acute complicated. No critical care time. Complexity of data reviewed and analyzed is moderate. Test ordered test reviewed results analyzed and correlated clinically with history and physical exam. Risk of complication and or risk of morbidity/mortality of patient management is low. Vital stable. Time spent to discharge patient is appr oximately 15 minutes. Plan of care established for shared decision making. No social determinants of health present to impede follow-up. Portions of this note were created with voice recognition technology. There may be grammatical, spelling, punctuation or sound alike errors 02/01/24 21:06 Counseled pt/family regarding: diagnosis, need for follow-up, rad results - Departure Departure Disposition: Home Clinical Impression: Fall, Contusion of rib on left side Condition: Stable Critical Care Time: No Referrals: CUATE BLANCO DO [Primary Care Provider] - Follow up/PCP as directed Instructions: Bruised Rib (DC) Additional Instructions: Discharge/Care Plan CLOTILDE HODGE was seen on 02/01/24 in the Emergency Room. The patient was c ounseled regarding Diagnosis,Lab results, Imaging studies, need for follow up and when to return to the Emergency Room. Prescriptions given: Discharge Note I have spoken with the patient and/or caregivers. I have explained the patient's condition, diagnosis and treatment plan based on the information available to me at this time. I have answered the patient's and/or caregiver's questions and addressed any concerns. The patient and/or caregivers have as good understanding of the patient's diagnosis, condition and treatment plan as can be expected at this point. The vital signs have been stable. The patient's condition is stable and appropriate for discharge from the emergency department. The patient will pursue further outpatient evaluation with the primary care physician or other designated or consulting physician as outlined in the discharge instructions. The patient and/or caregivers are agreeable to this plan of care and follow-up instructions have been explained in detail. The patient and/or caregivers have received these instruction. The patient/and or caregivers are aware that any significant change in condition or worsening of symptoms should prompt an immediate return to this or the closest emergency department or call 911. Prescriptions: Ketorolac Trometh 10 mg Tab [TORAdol 10 MG TABLET] 10 mg PO TID 5 Days #15 tablet
[2024-02-01 20:04] VITALS: BP 98/77; PULSE 60; RESP 16
--- NOTE | 2024-02-01 20:49 | XRAY ---
Indication: Left chest pain following fall. Multiple contiguous axial images obtained through the chest without contrast. Comparison: None Lungs inflated and clear. Heart not enlarged. Aorta normal course and caliber. No pathologic mediastinal lymphadenopathy. Bony thorax intact. Limited upper abdomen unremarkable. Impression: Normal CT chest without contrast exam.
[2024-02-01] MEDS: TORAdol 30 mg Injection IV ONE (21:10)
[2024-02-01] MEDS ORDERED: TORAdol 30 mg Injection ONE (21:11)
[2024-02-01] MEDS ORDERED: NORCO 5/325 MG ONE (21:18)
[2024-02-01] MEDS: NORCO 5/325 MG PO PRN (21:19)
== END 2024-02-01 21:31 | disposition home or self-care (01) ==
LOC: ED 18:59
DX: R07.81 Pleurodynia (principal); W19.XXXA Unspecified fall, initial encounter; Z79.899 Other long term (current) drug therapy
CPT/HCPCS: 36000; 71250; 96374; 96375; 99284; J1170; J1885; J2405; A9270-GY